=== PATIENT | male | born 1975 | race Caucasian/White ===

== ENCOUNTER 2020-06-22 14:29 | Emergency (ER) | payer BC ==
[2020-06-22 14:46] VITALS: BP 136/81
[2020-06-22] MEDS ORDERED: DEXAMETHASONE SOD PHOS INJ 10 MG/1 ML VIAL IM ONE (14:59)
--- NOTE | 2020-06-22 15:02 | ER Document Report ---
ED Respiratory Problem - General Chief Complaint: Asthma Exacerbation Stated Complaint: POSSIBLE ASTHMA ATTACK Time Seen by Provider: 06/22/20 14:58 Primary Care Provider: IVETH SIMMONS MD [HONORARY] - Follow up as needed Mode of Arrival: Ambulatory Information source: Patient Notes: Patient is a 44-year-old male comes emergency room complaining of 1 week onset o f wheezing and congestion. Patient states that he usually gets a little asthmatic this time a year prior to Thanksgiving he is from [facility] and he flew in last night from there to [facility]. He states when he got to the hotel he started getting into a coughing spell that he coughed so hard that it hurt. He states that when he laid down on his belly and lean forward and felt like he was draining the garbage out of his lung and he coughed up some yellowish phlegm sputum. He states that he woke up this morning he felt better. He still has some mild wheezing going on. Patient's only medical history is with asthma he takes no other medications with the exception of some albuterol inhaler. He states he wanted to cut this off before he gets bad. He denies smoking. He denies any fever no nausea or vomiting. TRAVEL OUTSIDE OF THE [place] IN LAST 30 DAYS: No - HPI Patient complains to provider of: Asthma, Cough, Short of breath Onset: Last week Initiating Event: URI Quality of pain: No pain Severity: Moderate Pain Level: 3 Context: Hx asthma Short of Breath: Mild Cough: Productive Sputum amount: Scant Sputum color: Clear, Yellow Sputum consistency: Thin At home treatment: Bronchodilators Associated symptoms: Wheezing Similar symptoms previously: Yes Recently seen / treated by doctor: No - Related Data Allergies/Adverse Reactions: Sulfa (Sulfonamide Antibiotics) Allergy (Intermediate, Verified 06/22/20 14:54) Hives Past Medical History - General Information source: Patient - Social History Smoking Status: Never Smoker Cigarette use (# per day): No Chew tobacco use (# tins/day): No Smoking Education Provided: No Frequency of alcohol use: None Drug Abuse: None Lives with: Family Family History: Reviewed & Not Pertinent Review of Systems - Review of Systems Constitutional: No symptoms reported EENT: Nose congestion Cardiovascular: No symptoms reported Respiratory: See HPI, Wheezing Gastrointestinal: No symptoms reported Genitourinary: No symptoms reported Male Genitourinary: No symptoms reported Musculoskeletal: No symptoms reported Skin: No symptoms reported Hematologic/Lymphatic: No symptoms reported Neurological/Psychological: No symptoms reported -: Yes All other systems reviewed and negative Physical Exam - Vital signs Vitals: Temp Pulse Resp BP Pulse Ox 98.6 F 82 20 136/81 H 99 06/22/20 14:45 06/22/20 14:45 06/22/20 14:45 06/22/20 14:45 06/22/20 14:45 Interpretation: Hypertensive - Notes Notes: PHYSICAL EXAMINATION: GENERAL: Well-appearing, well-nourished and in no acute distress. HEAD: Atraumatic, normocephalic. EYES: Pupils equal round and reactive to light, extraocular movements intact, sclera anicteric, conjunctiva are normal. ENT: Nares patent, oropharynx clear without exudates. Moist mucous membranes. NECK: Normal range of motion, supple without lymphadenopathy LUNGS: Auscultation patient's lungs show that he has bilateral breath sounds that are increased breath sounds with pain inspiratory and expiratory wheeze noted bilaterally. No rhonchi rales are heard at this time. HEART: Regular rate and rhythm without murmurs NEUROLOGICAL: . Normal speech, normal gait. Normal sensory, motor exams PSYCH: Normal mood, normal affect. SKIN: Warm, Dry, normal turgor, no rashes or lesions noted. Course - Re-evaluation Re-evalutation: 06/22/20 16:00 Patient's x-rays negative for any acute findings. I did not feel it was necessary to go any further level patient not had any fever. He did request a Covid test although symptoms were not necessarily related to that. At this time patient has an albuterol inhaler I will write him for a steroid taper as well. I will write for some Sudafed for his congestion. - Vital Signs Vital signs: Temp Pulse Resp BP Pulse Ox 98.6 F 82 20 136/81 H 99 06/22/20 14:45 06/22/20 14:45 06/22/20 14:45 06/22/20 14:45 06/22/20 14:45 Discharge - Discharge Clinical Impression: Upper respiratory disease Asthma attack Qualifiers: Asthma severity: moderate Asthma persistence: unspecified Qualified Code(s): J45.901 - Unspecified asthma with (acute) exacerbation Condition: Stable Disposition: HOME, SELF-CARE Instructions: Asthma ([facility]), Inhaled Bronchodilators ([facility]) Additional Instructions: Continue with your inhaler as your primary care provider. I am also writing you for a steroid taper which will help with your wheezing as well. And, in for a antihistamine decongestant that will help dry out the congestion portion of it. This should also help stop the cough. We will evacuate all follow-up with your primary care provider for reevaluation and continuation of care or if over the holidays you are still here and have any concerns or problems return to ER for reevaluation. Prescriptions: Methylprednisolone [Medrol Dosepack (4 mg/Tab) 21 Tab/Dosepak] 21 tab PO ASDIR #1 dspk Pseudoephedrine HCl [Sudafed 12 Hour] 120 mg PO BID #20 tablet.er Forms: Elevated Blood Pressure Referrals: IVETH SIMMONS MD [HONORARY] - Follow up as needed
--- NOTE | 2020-06-22 15:36 | RADIOLOGY REPORT (SQ) ---
EXAM DESCRIPTION: CHEST 2 VIEWS IMAGES COMPLETED DATE/TIME: 06/22/2020 3:18 pm REASON FOR STUDY: Cough/wheezing COMPARISON: None. EXAM PARAMETERS: NUMBER OF VIEWS: Two views. TECHNIQUE: PA and lateral views of the chest were obtained. RADIATION DOSE: NA LIMITATIONS: None. FINDINGS: LUNGS AND PLEURA: No consolidation, pleural effusion or pneumothorax. MEDIASTINUM AND HILAR STRUCTURES: No mediastinal or hilar contour abnormality. HEART AND VASCULAR STRUCTURES: The cardiac silhouette and pulmonary vasculature are within normal peter its. BONES: No acute findings. HARDWARE: None in the chest. OTHER: No other finding. IMPRESSION: No acute cardiopulmonary process. TECHNICAL DOCUMENTATION: JOB ID: [id number] 2010 [employer]- All Rights Reserved Reading location - IP/workstation name: [email or web address]
== END 2020-06-22 16:21 | disposition home or self-care (01) ==
LOC: ER 14:29
DX: J45.901 Unspecified asthma with (acute) exacerbation (principal); J39.9 Disease of upper respiratory tract, unspecified; R05 Cough; R09.81 Nasal congestion; R06.02 Shortness of breath; Z79.899 Other long term (current) drug therapy; Z88.2 Allergy status to sulfonamides; Z20.828 Contact with and (suspected) exposure to other viral communicable diseases
CPT/HCPCS: 99284; 96372; 71046; U0003; J1100; C9803; 87635